=== PATIENT | male | born 1935 | race Hispanic/Latino ===

== ENCOUNTER 2017-06-20 17:27 | Inpatient (IN) | payer MEDICARE, OTHER ==
[2017-06-20 18:28] LABS: Basophils % (Auto) 0.2 % (0.0-1.8); Eosinophils # (Auto) 0.2 K/mm3 (0.0-0.4); Eosinophils % (Auto) 1.7 % (0.0-4.3); Hematocrit 40.6 % (35.5-45.6); Hemoglobin 13.3 gm/dl (11.8-15.2); Lymphocytes # (Auto) 3.1 K/mm3 (1.2-5.4); Lymphocytes % (Auto) 23.4 % (13.4-35.0); Mean Corpuscular HGB Conc 33 % (32-34); Mean Corpuscular Hemoglobin 30 pg (28-32); Mean Corpuscular Volume 92 fl (84-94); Monocytes # (Auto) 1.3 K/mm3 (0.0-0.8); Monocytes % (Auto) 9.6 % (0.0-7.3); Platelet Count 259 K/mm3 (140-440); Red Blood Count 4.41 M/mm3 (3.65-5.03); Red Cell Distribution Width 13.3 % (13.2-15.2)
[2017-06-20 18:34] LABS: BUN/Creatinine Ratio 24; Blood Urea Nitrogen 22 mg/dL (9-20); Calcium 8.7 mg/dL (8.4-10.2); Hemolysis Index 2
--- NOTE | 2017-06-20 20:27 | XRay Report ---
FINAL REPORT EXAM: XR CHEST ROUTINE 2V HISTORY: Shortness of breath TECHNIQUE: Two view chest PA and lateral PRIORS: Comparison is dated October 28, 2009 FINDINGS: Cardiac and mediastinal contours are unremarkable. No focal pulmonary infiltrate is identified. No pleural fluid collection seen. Pulmonary vasculature is unremarkable. Irregular nodular appearing densities overlying the mid to lower thorax bilaterally are unchanged probably reflecting areas of scarring or calcified pleural. Lungs are hyperinflated with flattening of the diaphragm IMPRESSION: Nodular appearing densities unchanged prior exam likely reflecting calcified pleural plaque or areas of scarring. There is some hyperinflation likely reflecting underlying COPD
--- NOTE | 2017-06-20 23:13 | Emergency Department Report ---
ED Shortness of Breath HPI - General Chief Complaint: Dyspnea/Respdistress Stated Complaint: LUNGS Time Seen by Provider: 06/20/17 23:08 Source: patient Mode of arrival: Ambulatory Limitations: No Limitations - History of Present Illness Initial Comments: 81 YO MALE SOB AND COUGHING FOR 3 DAYS SEEN AT THE URGENT CARE AND SENT HER BECAUSE OF LOW SATURATION. 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,ARTHRITIS,HTN,COPD, BACK SURGERY, LEFT LUNG SURGERY, RIGHT ARM SURGERY FOR CANCER, LUNG BIOPSY Complaint: shortness of breath, cough -: Gradual, days(s) (3) Improves With: nothing Worsens With: nothing Known History Of: COPD, diabetes Context: recent URI Associated Symptoms: fever, cough - Related Data Allergies Allergy/AdvReac Type Severity Reaction Status Date / Time No Known Allergies Allergy Unverified 08/11/13 17:06 ED Review of Systems ROS: Stated complaint: LUNGS Other details as noted in HPI Constitutional: chills, fever Eyes: denies: eye pain, eye discharge, vision change ENT: denies: ear pain, throat pain Respiratory: cough. denies: wheezing Cardiovascular: denies: chest pain, palpitations Endocrine: no symptoms reported Gastrointestinal: denies: abdominal pain, nausea, diarrhea Genitourinary: denies: urgency, dysuria Musculoskeletal: arthralgia, myalgia. denies: back pain, joint swelling Skin: denies: rash, lesions Neurological: denies: headache, weakness, paresthesias Psychiatric: denies: anxiety, depression Hematological/Lymphatic: denies: easy bleeding, easy bruising ED Past Medical Hx - Past Medical History Previous Medical History?: Yes Hx Hypertension: Yes Hx Diabetes: Yes Hx of Cancer: Yes (nose, arm) Hx Arthritis: Yes Hx COPD: Yes Additional medical history: Lung problems - Surgical History Past Surgical History?: Yes Additional Surgical History: back surgeyr x 4, Left lung surgery, Right arm surgery for skin cancer, Lung biopsy - Social History Smoking Status: Former Smoker Substance Use Type: Prescribed ED Physical Exam - General Limitations: No Limitations General appearance: alert - Head Head exam: Present: atraumatic, normocephalic - Eye Eye exam: Present: normal appearance, EOMI - ENT ENT exam: Present: mucous membranes moist - Neck Neck exam: Present: normal inspection, full ROM - Respiratory Respiratory exam: Present: respiratory distress, rales (LEFT LUNG), decreased breath sounds (LEFT LUNG) - Cardiovascular Cardiovascular Exam: Present: regular rate, normal rhythm - GI/Abdominal GI/Abdominal exam: Present: soft. Absent: distended, tenderness, guarding, rebound - Rectal Rectal exam: Present: deferred - Extremities Exam Extremities exam: Present: normal inspection, full ROM, normal capillary refill. Absent: pedal edema - Neurological Exam Neurological exam: Present: alert, oriented X3, CN II-XII intact - Psychiatric Psychiatric exam: Present: normal affect, normal mood - Skin Skin exam: Present: warm, dry, intact, normal color. Absent: rash ED Course Vital Signs 06/20/17 06/20/17 06/20/17 17:42 21:25 21:48 Temperature 98 F 97.9 F Pulse Rate 78 83 78 Pulse Rate [ Throughout] Respiratory 18 22 16 Rate Respiratory Rate [ Throughout] Blood Pressure 140/60 149/59 Blood Pressure 128/57 [Right] O2 Sat by Pulse 92 92 94 Oximetry 06/20/17 06/20/17 06/20/17 22:22 22:24 22:26 Temperature Pulse Rate Pulse Rate [ Throughout] Respiratory Rate Respiratory Rate [ Throughout] Blood Pressure 129/58 129/58 129/58 Blood Pressure [Right] O2 Sat by Pulse 92 93 95 Oximetry 06/20/17 06/20/17 06/20/17 22:28 22:30 22:32 Temperature Pulse Rate Pulse Rate [ Throughout] Respiratory Rate Respiratory Rate [ Throughout] Blood Pressure 129/58 129/58 138/61 Blood Pressure [Right] O2 Sat by Pulse 94 93 94 Oximetry 06/20/17 06/20/17 06/20/17 22:34 22:36 22:38 Temperature Pulse Rate Pulse Rate [ Throughout] Respiratory Rate Respiratory Rate [ Throughout] Blood Pressure 138/61 138/61 138/61 Blood Pressure [Right] O2 Sat by Pulse 95 94 93 Oximetry 06/20/17 06/20/17 06/20/17 22:40 22:42 22:44 Temperature Pulse Rate Pulse Rate [ Throughout] Respiratory Rate Respiratory Rate [ Throughout] Blood Pressure 138/61 138/61 138/61 Blood Pressure [Right] O2 Sat by Pulse 94 95 93 Oximetry 06/20/17 06/20/17 06/20/17 22:45 22:46 22:48 Temperature Pulse Rate Pulse Rate [ Throughout] Respiratory Rate Respiratory Rate [ Throughout] Blood Pressure 128/57 128/57 128/57 Blood Pressure [Right] O2 Sat by Pulse 93 94 93 Oximetry 06/20/17 06/20/17 06/20/17 22:50 22:52 22:54 Temperature Pulse Rate Pulse Rate [ Throughout] Respiratory Rate Respiratory Rate [ Throughout] Blood Pressure 128/57 128/57 128/57 Blood Pressure [Right] O2 Sat by Pulse 93 93 94 Oximetry 06/20/17 06/20/17 06/20/17 22:56 22:58 23:00 Temperature Pulse Rate Pulse Rate [ Throughout] Respiratory Rate Respiratory Rate [ Throughout] Blood Pressure 128/57 128/57 128/57 Blood Pressure [Right] O2 Sat by Pulse 95 94 94 Oximetry 06/20/17 06/20/17 06/20/17 23:01 23:02 23:04 Temperature Pulse Rate Pulse Rate [ Throughout] Respiratory Rate Respiratory Rate [ Throughout] Blood Pressure 134/58 134/58 134/58 Blood Pressure [Right] O2 Sat by Pulse 95 95 95 Oximetry 06/20/17 06/20/17 06/20/17 23:06 23:08 23:10 Temperature Pulse Rate Pulse Rate [ Throughout] Respiratory Rate Respiratory Rate [ Throughout] Blood Pressure 134/58 134/58 134/58 Blood Pressure [Right] O2 Sat by Pulse 95 95 95 Oximetry 06/20/17 06/20/17 06/20/17 23:12 23:14 23:16 Temperature Pulse Rate Pulse Rate [ Throughout] Respiratory Rate Respiratory Rate [ Throughout] Blood Pressure 134/58 134/58 134/58 Blood Pressure [Right] O2 Sat by Pulse 94 94 94 Oximetry 06/20/17 06/20/17 06/20/17 23:18 23:20 23:22 Temperature Pulse Rate Pulse Rate [ Throughout] Respiratory Rate Respiratory Rate [ Throughout] Blood Pressure 134/58 134/58 134/58 Blood Pressure [Right] O2 Sat by Pulse 94 95 97 Oximetry 06/20/17 06/20/17 06/20/17 23:24 23:25 23:26 Temperature Pulse Rate Pulse Rate [ Throughout] Respiratory 17 Rate Respiratory Rate [ Throughout] Blood Pressure 134/58 134/58 Blood Pressure [Right] O2 Sat by Pulse 96 96 95 Oximetry 06/20/17 06/20/17 06/20/17 23:28 23:30 23:32 Temperature Pulse Rate Pulse Rate [ Throughout] Respiratory Rate Respiratory Rate [ Throughout] Blood Pressure 134/58 134/58 136/61 Blood Pressure [Right] O2 Sat by Pulse 95 97 94 Oximetry 06/20/17 06/20/17 06/20/17 23:34 23:36 23:38 Temperature Pulse Rate Pulse Rate [ Throughout] Respiratory Rate Respiratory Rate [ Throughout] Blood Pressure 136/61 136/61 136/61 Blood Pressure [Right] O2 Sat by Pulse 96 94 92 Oximetry 06/20/17 06/20/17 06/20/17 23:40 23:42 23:44 Temperature Pulse Rate Pulse Rate [ Throughout] Respiratory Rate Respiratory Rate [ Throughout] Blood Pressure 136/61 136/61 136/61 Blood Pressure [Right] O2 Sat by Pulse 95 95 95 Oximetry 06/20/17 06/20/17 06/20/17 23:45 23:46 23:48 Temperature Pulse Rate Pulse Rate [ Throughout] Respiratory Rate Respiratory Rate [ Throughout] Blood Pressure 133/59 133/59 133/59 Blood Pressure [Right] O2 Sat by Pulse 96 96 95 Oximetry 06/20/17 06/20/17 06/21/17 23:50 23:52 00:40 Temperature Pulse Rate 79 78 Pulse Rate [ 81 Throughout] Respiratory 22 29 H Rate Respiratory 24 Rate [ Throughout] Blood Pressure 133/59 133/59 Blood Pressure [Right] O2 Sat by Pulse 96 95 Oximetry 06/21/17 00:52 Temperature Pulse Rate 91 H Pulse Rate [ Throughout] Respiratory 28 H Rate Respiratory Rate [ Throughout] Blood Pressure 133/59 Blood Pressure [Right] O2 Sat by Pulse 93 Oximetry - Reevaluation(s) Reevaluation #1: 06/21/17 03:34 PT 'S GLUCOSE WAS 61, HE WAS GIVENAAPPLE JUICE AND NOW A MEAL. STILL WAITING ON CTA OF CHEST REPORT. ED Medical Decision Making - Lab Data Result diagrams: 06/20/17 18:05 06/20/17 18:05 - EKG Data -: EKG Interpreted by Fl EKG shows normal: sinus rhythm, axis, intervals, QRS complexes, ST-T waves - Radiology Data Radiology results: report reviewed (CXR;NODUALR APPEARING DENSITIES UNCHANGED FROM PRIOR EXAM, LIKELY REPRESENTING CALCIFIED PLEURAL PLAQUE OR AREAS OF SCARRING, HYPERINFLATION LIKELY REFLECTING AREAS OF SCARRING) Critical Care Time: Yes Critical care time in (mins) excluding proc time.: 30 Critical care attestation.: If time is entered above; I have spent that time in minutes in the direct care of this critically ill patient, excluding procedure time. COLEMAN Critical Care Time: 30MIN ED Disposition Clinical Impression: COPD exacerbation, Dehydration, Hypoglycemia Disposition: OP ADMIT IP TO THIS HOSP Is pt being admited?: Yes Does the pt Need Aspirin: No Condition: Stable Instructions: Chronic Bronchitis (ED) Referrals: BOBBY BOGGS MD [Primary Care Provider] - 3-5 Days Time of Disposition: 03:28 (DR PIERSON WAS PAGED, CASE REVIEWED AND SHE WILL HAVE THE 7AM INCOMIM DOCTOR ADMIT THIS PT)
[2017-06-20] MEDS ORDERED: ATROVENT IH ONE (23:20)
[2017-06-20] MEDS ORDERED: PROVENTIL IH ONE (23:20)
[2017-06-20] MEDS ORDERED: ZITHROMAX 500 MG in NACL 0.9% 250ML 250 ML IV ONE (23:20)
[2017-06-20] MEDS ORDERED: XYLOCAINE 1% MPF 5 mL INFILTRATI ONE (23:20)
[2017-06-20] MEDS ORDERED: ROCEPHIN 1 GM in NACL 0.9% 20 ML IV ONE (23:30)
[2017-06-20] MEDS ORDERED: ROCEPHIN 1,000 MG in NACL 0.9% 50 ML IV NR (23:45)
[2017-06-21] MEDS ORDERED: NACL ONE (01:24)
[2017-06-21] MEDS ORDERED: TORADOL ONE (01:38)
[2017-06-21] MEDS ORDERED: PROVENTIL IH ONE (03:14)
[2017-06-21] MEDS: ATROVENT IH ONE (03:30)
--- NOTE | 2017-06-21 03:52 | Cat Scan Report ---
FINAL REPORT PROCEDURE: CT ANGIO CHEST TECHNIQUE: Computerized tomographic angiography of the chest was performed after the IV injection of iodinated nonionic contrast including image processing. The image data was postprocessed using 2-dimensional multiplanar reformatted (MPR) and 3-dimensional (MIP and/or volume rendered) techniques. HISTORY: SOB COMPARISON: No prior studies are available for comparison. FINDINGS: Heart and pericardium: Normal. Thoracic aorta: There is calcified plaque in the thoracic aorta. There is no aneurysm or dissection.. Pulmonary vasculature: There are no pulmonary emboli.. Lymph nodes: No enlarged thoracic lymph nodes. Lungs: There is moderate COPD and centrilobular emphysema. There are fibrotic changes at the lung bases. There are probable interstitial infiltrates at the right lung base.. Pleural space: There are calcified pleural plaque bilaterally. There are no pleural effusions or pneumothoraces. Musculoskeletal structures: No significant abnormality. Upper abdominal structures: No significant abnormality. IMPRESSION: There is no pulmonary embolism. There is calcified plaque in the thoracic aorta. There is no aneurysm or dissection.. There is moderate COPD and centrilobular emphysema. There are fibrotic changes at the lung bases. There are probable interstitial infiltrates at the right lung base.. There are calcified pleural plaque bilaterally. There are no pleural effusions or pneumothoraces.
--- NOTE | 2017-06-21 05:20 | History and Physical Report ---
History of Present Illness Date of examination: 06/21/17 Chief complaint: SOB / Respiratory distress / Low O2 sat History of present illness: 81 YO MALE SOB AND COUGHING FOR 3 DAYS SEEN AT THE URGENT CARE AND SENT HER BECAUSE OF LOW SATURATION. 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 denies: alcohol abuse Family history: no significant family history Medications and Allergies Allergies Allergy/AdvReac Type Severity Reaction Status Date / Time No Known Allergies Allergy Unverified 08/11/13 17:06 Review of Systems All systems: negative Exam - Physical Exam Narrative exam: General: the patient is awake alert oriented to time place and person. no evidence of acute distress HEENT: Head is atraumatic normocephalic,. Pupils equal round reactive to light and accommodation, extraocular movements intact. Oral mucosa moist. Oropharynx clear. No pharyngeal erythema or tonsillar exudate. Neck: Supple no JVD no thyromegaly or lymphadenopathy. Heart: Regular rate and rhythm no murmurs or gallops. S1 and S2 normal. PMI not displaced. Lungs: respiratory distress, no accessory Respiratory muscle use, rales (LEFT LUNG), decreased breath sounds (LEFT LUNG), diminished chest wall expansion Abdomen: Soft, nondistended, and nontender. Normoactive bowel sounds. No hepatosplenomegaly. No abdominal masses or bruit appreciated. Extremities: No cyanosis/clubbing/ edema. Musculoskeletal: Normal range of movement all joints. No obvious deformity or tenderness to palpation. Normal muscle tone. Back: Normal alignment. No step-off. No midline or paraspinal tenderness. No CVA tenderness. Neurological: Grossly intact and nonfocal. Skin: Warm and dry no rashes or bruises. Psychiatric: Normal mood. Appropriate affect and good insight and judgment. Vascular system: No lymphadenopathy. Distal pulses 2+ bilaterally. - Constitutional Vitals: Temp Pulse Resp BP Pulse Ox 97.9 F 91 H 28 H 133/59 93 06/20/17 21:25 06/21/17 00:52 06/21/17 00:52 06/21/17 00:52 06/21/17 00:52 Results - Labs CBC & Chem 7: 06/20/17 18:05 06/20/17 18:05 Labs: Laboratory Last Values WBC 13.1 K/mm3 (4.5-11.0) H 06/20/17 18:05 RBC 4.41 M/mm3 (3.65-5.03) 06/20/17 18:05 Hgb 13.3 gm/dl (11.8-15.2) 06/20/17 18:05 Hct 40.6 % (35.5-45.6) 06/20/17 18:05 MCV 92 fl (84-94) 06/20/17 18:05 MCH 30 pg (28-32) 06/20/17 18:05 MCHC 33 % (32-34) 06/20/17 18:05 RDW 13.3 % (13.2-15.2) 06/20/17 18:05 Plt Count 259 K/mm3 (140-440) 06/20/17 18:05 Lymph % (Auto) 23.4 % (13.4-35.0) 06/20/17 18:05 [place] % (Auto) 9.6 % (0.0-7.3) H 06/20/17 18:05 Eos % (Auto) 1.7 % (0.0-4.3) 06/20/17 18:05 Baso % (Auto) 0.2 % (0.0-1.8) 06/20/17 18:05 Lymph # 3.1 K/mm3 (1.2-5.4) 06/20/17 18:05 [place] # 1.3 K/mm3 (0.0-0.8) H 06/20/17 18:05 Eos # 0.2 K/mm3 (0.0-0.4) 06/20/17 18:05 Baso # 0.0 K/mm3 (0.0-0.1) 06/20/17 18:05 Seg Neutrophils % 65.1 % (40.0-70.0) 06/20/17 18:05 Seg Neutrophils # 8.6 K/mm3 (1.8-7.7) H 06/20/17 18:05 Sodium 139 mmol/L (137-145) 06/20/17 18:05 Potassium 4.1 mmol/L (3.6-5.0) 06/20/17 18:05 Chloride 98.6 mmol/L (98-107) 06/20/17 18:05 Carbon Dioxide 24 mmol/L (22-30) 06/20/17 18:05 Anion Gap 21 mmol/L 06/20/17 18:05 BUN 22 mg/dL (9-20) H 06/20/17 18:05 Creatinine 0.9 mg/dL (0.8-1.5) 06/20/17 18:05 Estimated GFR > 60 ml/min 06/20/17 18:05 BUN/Creatinine Ratio 24 % 06/20/17 18:05 Glucose 61 mg/dL (75-100) L 06/20/17 18:05 Calcium 8.7 mg/dL (8.4-10.2) 06/20/17 18:05 Total Creatine Kinase 73 units/L (55-170) 06/20/17 23:38 CK-MB (CK-2) 3.0 ng/mL (0.0-4.0) 06/20/17 23:38 CK-MB (CK-2) Rel Index 4.1 (0-4) H 06/20/17 23:38 Troponin T < 0.010 ng/mL (0.00-0.029) 06/20/17 23:38 NT-Pro-B Natriuret Pep 465.7 pg/mL (0-900) 06/20/17 23:38 - Imaging and Cardiology Imaging and Cardiology: EKG shows normal: sinus rhythm, axis, intervals, QRS complexes, ST-T waves CXR;NODUALR APPEARING DENSITIES UNCHANGED FROM PRIOR EXAM, LIKELY REPRESENTING CALCIFIED PLEURAL PLAQUE OR AREAS OF SCARRING, HYPERINFLATION LIKELY REFLECTING AREAS OF SCARRING CTA chest showing moderate COPD and sensory emphysema. There are fibrotic changes at the lung bases. Probable interstitial infiltrates of the right lung base. No PE Assessment and Plan Assessment and plan: Assessment and plan - * Shortness of breath with hypoxia * COPD exacerbation * Interstitial pneumonia * Leukocytosis * History of lung cancer * HTN * DM-II Plan - Admitted to medical telemetry Empiric antibiotics of azithromycin and Rocephin COPD exacerbation - IV steroids (IV Solu-Medrol) when necessary and scheduled bronchodilators aggressively, inhaled steroids Pulmonology consult in a.m. for further evaluation and management recommendations Continue home medications Check hemoglobin A1c Monitor blood sugars with Accu-Cheks every before meals daily at bedtime and cover with sliding scale insulin Monitor CBC and electrolytes Replace electrolytes when necessary as per protocol DVT GI prophylaxis as ordered Monitor and follow the patient closely VTE prophylaxis?: Chemical, Mechanical Plan of care discussed with patient/family: Yes
[2017-06-21] MEDS ORDERED: AMBIEN PO PRN (05:30)
[2017-06-21] MEDS ORDERED: ZOFRAN IV PRN (05:30)
[2017-06-21] MEDS ORDERED: PROVENTIL IH PRN (05:30)
[2017-06-21] MEDS ORDERED: PERCOCET 5/325 PO PRN (05:30)
[2017-06-21] MEDS ORDERED: TYLENOL PO PRN (05:30)
[2017-06-21] MEDS ORDERED: MILK OF MAGNESIA PO PRN (05:30)
[2017-06-21] MEDS ORDERED: DULCOLAX PR PRN (05:30)
[2017-06-21] MEDS ORDERED: D50W (25GM) Syringe IV PRN (05:38)
[2017-06-21 07:51] LABS: Alanine Aminotransferase 24 units/L (7-56); Albumin 3.4 g/dL (3.9-5); BUN/Creatinine Ratio 26; Blood Urea Nitrogen 23 mg/dL (9-20); Calcium 8.3 mg/dL (8.4-10.2); Chol/HDL Ratio 2.82 %; HDL Cholesterol 51 mg/dL (40-59); Hemolysis Index 2; LDL Cholesterol,Direct 82 mg/dL (50-130)
[2017-06-21] MEDS: NOVOLOG SUB-Q SCH ×4 (08:00→22:38)
[2017-06-21] MEDS: DUONEB *Not for PRN Use IH SCH ×3 (08:44→20:04)
[2017-06-21 08:50] LABS: Hematocrit 37.3 % (35.5-45.6); Hemoglobin 12.4 gm/dl (11.8-15.2); Mean Corpuscular HGB Conc 33 % (32-34); Mean Corpuscular Hemoglobin 30 pg (28-32); Mean Corpuscular Volume 90 fl (84-94); Platelet Count 225 K/mm3 (140-440); Red Blood Count 4.13 M/mm3 (3.65-5.03); Red Cell Distribution Width 12.9 % (13.2-15.2)
[2017-06-21] MEDS: PULMICORT IH SCH ×2 (08:54→20:04)
[2017-06-21 09:52] LABS: Band Neutrophils # (Manual) 0.1 K/mm3; Basophils % (Manual) 0 % (0.0-1.8); Eosinophils % (Manual) 0 % (0.0-4.3); Monocytes % (Manual) 0 % (0.0-7.3); Total Cells Counted 100
[2017-06-21 09:54] LABS: RBC Morphology Normal
[2017-06-21] MEDS: SENOKOT PO SCH ×2 (10:50→21:42)
[2017-06-21] MEDS: LOVENOX SUB-Q SCH (10:50)
[2017-06-21] MEDS: COLACE PO SCH ×2 (10:51→21:42)
[2017-06-21] MEDS: PROTONIX PO SCH (10:51)
[2017-06-21] MEDS: LEVAQUIN 750MG/150ML 750 MG/150 ML BAG IV SCH (10:52)
[2017-06-21] MEDS: NACL 0.9% 1000 ML 1,000 ML IV SCH (10:52)
--- NOTE | 2017-06-21 11:50 | Progress Note ---
Assessment and Plan Assessment and plan: Acute hypoxic respiratory failure. Continue supplemental oxygen and BiPAP as clinically indicated. Etiology secondary to COPD and pneumonia. Community-acquired pneumonia. Continue IV antibiotics. Follow-up serial Chest x-ray. Acute COPD exacerbation. Continue systemic steroids with IV Solu-Medrol and bronchodilators. Pulmonary consultation pending. Leukocytosis. Etiology secondary to above. Hypertension. Continue antihypertensive medications. Diabetes mellitus type 2. Continue Accu-Cheks and sliding scale insulin. History of lung cancer. History Interval history: No new issues overnight. Hospitalist Physical - Constitutional Vitals: Temp Pulse Resp BP Pulse Ox 97.9 F 70 21 116/51 95 06/20/17 21:25 06/21/17 08:47 06/21/17 05:52 06/21/17 06:24 06/21/17 07:30 General appearance: Present: no acute distress, well-nourished - EENT Eyes: Present: PERRL, EOM intact ENT: hearing intact, clear oral mucosa, dentition normal - Neck Neck: Present: supple, normal ROM - Respiratory Respiratory effort: normal Respiratory: bilateral: CTA - Cardiovascular Rhythm: regular Heart Sounds: Present: S1 & S2. Absent: gallop, rub - Extremities Extremities: no ischemia, No edema, Full ROM - Abdominal General gastrointestinal: soft, non-tender, non-distended, normal bowel sounds - Integumentary Integumentary: Present: clear, warm, dry - Neurologic Neurologic: CNII-XII intact, moves all extremities Results - Labs CBC & Chem 7: 06/21/17 08:21 06/21/17 06:59 Labs: Laboratory Last Values WBC 9.6 K/mm3 (4.5-11.0) 06/21/17 08:21 RBC 4.13 M/mm3 (3.65-5.03) 06/21/17 08:21 Hgb 12.4 gm/dl (11.8-15.2) 06/21/17 08:21 Hct 37.3 % (35.5-45.6) 06/21/17 08:21 MCV 90 fl (84-94) 06/21/17 08:21 MCH 30 pg (28-32) 06/21/17 08:21 MCHC 33 % (32-34) 06/21/17 08:21 RDW 12.9 % (13.2-15.2) L 06/21/17 08:21 Plt Count 225 K/mm3 (140-440) 06/21/17 08:21 Lymph % (Auto) 23.4 % (13.4-35.0) 06/20/17 18:05 [place] % (Auto) 9.6 % (0.0-7.3) H 06/20/17 18:05 Eos % (Auto) 1.7 % (0.0-4.3) 06/20/17 18:05 Baso % (Auto) 0.2 % (0.0-1.8) 06/20/17 18:05 Lymph # 3.1 K/mm3 (1.2-5.4) 06/20/17 18:05 [place] # 1.3 K/mm3 (0.0-0.8) H 06/20/17 18:05 Eos # 0.2 K/mm3 (0.0-0.4) 06/20/17 18:05 Baso # 0.0 K/mm3 (0.0-0.1) 06/20/17 18:05 Add Manual Diff Complete 06/21/17 08:21 Total Counted 100 06/21/17 08:21 Seg Neutrophils % Curb And Gutter Laborer 06/21/17 08:21 Seg Neuts % (Manual) 95.0 % (40.0-70.0) H 06/21/17 08:21 Band Neutrophils % 1.0 % 06/21/17 08:21 Lymphocytes % (Manual) 4.0 % (13.4-35.0) L 06/21/17 08:21 Reactive Lymphs % (Man) 0 % 06/21/17 08:21 Monocytes % (Manual) 0 % (0.0-7.3) 06/21/17 08:21 Eosinophils % (Manual) 0 % (0.0-4.3) 06/21/17 08:21 Basophils % (Manual) 0 % (0.0-1.8) 06/21/17 08:21 Metamyelocytes % 0 % 06/21/17 08:21 Myelocytes % 0 % 06/21/17 08:21 Promyelocytes % 0 % 06/21/17 08:21 Blast Cells % 0 % 06/21/17 08:21 Nucleated RBC % Not Reportable 06/21/17 08:21 Seg Neutrophils # 8.6 K/mm3 (1.8-7.7) H 06/20/17 18:05 Seg Neutrophils # Man 9.1 K/mm3 (1.8-7.7) H 06/21/17 08:21 Band Neutrophils # 0.1 K/mm3 06/21/17 08:21 Lymphocytes # (Manual) 0.4 K/mm3 (1.2-5.4) L 06/21/17 08:21 Abs React Lymphs (Man) 0.0 K/mm3 06/21/17 08:21 Monocytes # (Manual) 0.0 K/mm3 (0.0-0.8) 06/21/17 08:21 Eosinophils # (Manual) 0.0 K/mm3 (0.0-0.4) 06/21/17 08:21 Basophils # (Manual) 0.0 K/mm3 (0.0-0.1) 06/21/17 08:21 Metamyelocytes # 0.0 K/mm3 06/21/17 08:21 Myelocytes # 0.0 K/mm3 06/21/17 08:21 Promyelocytes # 0.0 K/mm3 06/21/17 08:21 Blast Cells # 0.0 K/mm3 06/21/17 08:21 WBC Morphology Not Reportable 06/21/17 08:21 Hypersegmented Neuts Not Reportable 06/21/17 08:21 Hyposegmented Neuts Not Reportable 06/21/17 08:21 Hypogranular Neuts Not Reportable 06/21/17 08:21 Smudge Cells Not Reportable 06/21/17 08:21 Toxic Granulation Not Reportable 06/21/17 08:21 Toxic Vacuolation Not Reportable 06/21/17 08:21 Dohle Bodies Not Reportable 06/21/17 08:21 Pelger-Huet Anomaly Not Reportable 06/21/17 08:21 Evens Rods Not Reportable 06/21/17 08:21 Platelet Estimate Appears normal 06/21/17 08:21 Clumped Platelets Not Reportable 06/21/17 08:21 Plt Clumps, EDTA Not Reportable 06/21/17 08:21 Large Platelets Not Reportable 06/21/17 08:21 Giant Platelets Not Reportable 06/21/17 08:21 Platelet Satelliting Not Reportable 06/21/17 08:21 Plt Morphology Comment Not Reportable 06/21/17 08:21 RBC Morphology Normal 06/21/17 08:21 Dimorphic RBCs Not Reportable 06/21/17 08:21 Polychromasia Not Reportable 06/21/17 08:21 Hypochromasia Not Reportable 06/21/17 08:21 Poikilocytosis Not Reportable 06/21/17 08:21 Anisocytosis Not Reportable 06/21/17 08:21 Microcytosis Not Reportable 06/21/17 08:21 Macrocytosis Not Reportable 06/21/17 08:21 Spherocytes Not Reportable 06/21/17 08:21 Pappenheimer Bodies Not Reportable 06/21/17 08:21 Sickle Cells Not Reportable 06/21/17 08:21 Target Cells Not Reportable 06/21/17 08:21 Tear Drop Cells Not Reportable 06/21/17 08:21 Ovalocytes Not Reportable 06/21/17 08:21 Helmet Cells Not Reportable 06/21/17 08:21 [place] Bodies Not Reportable 06/21/17 08:21 [place] Rings Not Reportable 06/21/17 08:21 S[place] Cells Not Reportable 06/21/17 08:21 Bite Cells Not Reportable 06/21/17 08:21 Crenated Cell Not Reportable 06/21/17 08:21 Elliptocytes Not Reportable 06/21/17 08:21 Acanthocytes (Spur) Not Reportable 06/21/17 08:21 Rouleaux Not Reportable 06/21/17 08:21 Hemoglobin C Crystals Not Reportable 06/21/17 08:21 Schistocytes Not Reportable 06/21/17 08:21 Malaria parasites Not Reportable 06/21/17 08:21 [place] Bodies Not Reportable 06/21/17 08:21 Hem Pathologist Commnt No 06/21/17 08:21 Sodium 138 mmol/L (137-145) 06/21/17 06:59 Potassium 4.6 mmol/L (3.6-5.0) 06/21/17 06:59 Chloride 99.4 mmol/L (98-107) 06/21/17 06:59 Carbon Dioxide 20 mmol/L (22-30) L 06/21/17 06:59 Anion Gap 23 mmol/L 06/21/17 06:59 BUN 23 mg/dL (9-20) H 06/21/17 06:59 Creatinine 0.9 mg/dL (0.8-1.5) 06/21/17 06:59 Estimated GFR > 60 ml/min 06/21/17 06:59 BUN/Creatinine Ratio 26 % 06/21/17 06:59 Glucose 282 mg/dL (75-100) H 06/21/17 06:59 Hemoglobin A1c 6.7 % (4-6) H 06/21/17 06:59 Calcium 8.3 mg/dL (8.4-10.2) L 06/21/17 06:59 Total Bilirubin 0.60 mg/dL (0.1-1.2) 06/21/17 06:59 AST 24 units/L (5-40) 06/21/17 06:59 ALT 24 units/L (7-56) 06/21/17 06:59 Alkaline Phosphatase 58 units/L (35-129) 06/21/17 06:59 Total Creatine Kinase 73 units/L (55-170) 06/20/17 23:38 CK-MB (CK-2) 3.0 ng/mL (0.0-4.0) 06/20/17 23:38 CK-MB (CK-2) Rel Index 4.1 (0-4) H 06/20/17 23:38 Troponin T < 0.010 ng/mL (0.00-0.029) 06/20/17 23:38 NT-Pro-B Natriuret Pep 465.7 pg/mL (0-900) 06/20/17 23:38 Total Protein 6.4 g/dL (6.3-8.2) 06/21/17 06:59 Albumin 3.4 g/dL (3.9-5) L 06/21/17 06:59 Albumin/Globulin Ratio 1.1 % 06/21/17 06:59 Triglycerides 58 mg/dL (2-149) 06/21/17 06:59 Cholesterol 144 mg/dL (50-199) 06/21/17 06:59 LDL Cholesterol Direct 82 mg/dL (50-130) 06/21/17 06:59 HDL Cholesterol 51 mg/dL (40-59) 06/21/17 06:59 Cholesterol/HDL Ratio 2.82 % 06/21/17 06:59
--- NOTE | 2017-06-21 14:06 | Consultation ---
History of Present Illness Consult date: 06/21/17 Requesting physician: VALENTIN BARRETO Reason for consult: COPD History of present illness: 81 yo with COPD presents with 5-6 days of increased SOB, wheezing, cough with green/brown sputum, fever to 101. No chest pain, hemoptysis. Not on home O2. Currently on RA. Active Medications Acetaminophen (Tylenol) 650 mg PO Q4H PRN PRN Reason: Pain MILD(1-3)/Fever >100.5/MILES Albuterol (Proventil) 2.5 mg IH Q3HRT PRN PRN Reason: Shortness Of Breath Last Admin: 06/21/17 08:54 Dose: 2.5 mg Albuterol/Ipratropium (Duoneb *Not For Prn Use*) 1 ampul IH Q6HRT [facility] Last Admin: 06/21/17 08:44 Dose: Not Given Bisacodyl (Dulcolax) 10 mg NE QDAY PRN PRN Reason: Constipation unrelieved by MOM Budesonide (Pulmicort) 0.5 mg IH Q12HRT [facility] Last Admin: 06/21/17 08:54 Dose: 0.5 mg Dextrose (D50w (25gm) Syringe) 50 ml IV PRN PRN PRN Reason: Hypoglycemia Docusate Sodium (Colace) 100 mg PO BID [facility] Last Admin: 06/21/17 10:51 Dose: 100 mg Enoxaparin Sodium (Lovenox) 40 mg SUB-Q QDAY [facility] Last Admin: 06/21/17 10:50 Dose: 40 mg Guaifenesin (Mucinex Er) 600 mg PO BID [facility] Levofloxacin/Dextrose (Levaquin 750mg/150ml) 750 mg in 150 mls @ 100 mls/hr IV Q24HR BIJAN PRN Reason: Protocol Last Admin: 06/21/17 10:52 Dose: 100 mls/hr Sodium Chloride (Nacl 0.9% 1000 Ml) 1,000 mls @ 125 mls/hr IV DIRECT [facility] Last Admin: 06/21/17 10:52 Dose: 125 mls/hr Insulin Aspart (Novolog) 0 units SUB-Q ACHS BIJAN PRN Reason: Protocol Magnesium Hydroxide (Milk Of Magnesia) 30 ml PO Q4H PRN PRN Reason: Constipation Methylprednisolone Sodium Succinate (Solu-Medrol) 60 mg IV Q8HR [facility] Ondansetron HCl (Zofran) 4 mg IV Q8H PRN PRN Reason: N/V unrelieved by Seth Oxycodone/Acetaminophen (Percocet 5/325) 1 tab PO Q6H PRN PRN Reason: Pain, Moderate (4-6) Pantoprazole Sodium (Protonix) 40 mg PO QDAY [facility] Last Admin: 06/21/17 10:51 Dose: 40 mg Senna (Senokot) 8.6 mg PO Q12HR [facility] Last Admin: 06/21/17 10:50 Dose: 8.6 mg Zolpidem Tartrate (Ambien) 5 mg PO QHS PRN PRN Reason: Insomnia Past History Past Medical History: other (Hypertension, diabetes mellitus type 2, arthritis, COPD, back surgery and lung surgery and right thumb surgery for cancer, lung biopsy) Social history: smoking, full code. denies: alcohol abuse, prescription drug abuse, IV drug use Family history: no significant family history (no pulm issues reported) Medications and Allergies Allergies Allergy/AdvReac Type Severity Reaction Status Date / Time No Known Allergies Allergy Unverified 08/11/13 17:06 Home Medications Medication Instructions Recorded Confirmed Last Taken Type ALBUTEROL Inhaler [Proair] 2 puff IH QID PRN 06/21/17 06/21/17 1 Day Ago History ~06/20/17 Fluticasone [Flonase] 1 spray NS QDAY 06/21/17 06/21/17 1 Day Ago History ~06/20/17 Glimepiride [Amaryl] 2 mg PO QAM 06/21/17 06/21/17 1 Day Ago History ~06/20/17 Ipratropium/Albuterol Sulfate 1 ampul IH Q6HR 06/21/17 06/21/17 1 Day Ago History [DUONEB *Not for PRN Use*] ~06/20/17 Saxagliptin HCl/Metformin HCl 1 each PO DAILY 06/21/17 06/21/17 1 Day Ago History [Kombiglyze Xr 2.5-1,000 mg Tab] ~06/20/17 Active Meds: Active Medications Acetaminophen (Tylenol) 650 mg PO Q4H PRN PRN Reason: Pain MILD(1-3)/Fever >100.5/MILES Albuterol (Proventil) 2.5 mg IH Q3HRT PRN PRN Reason: Shortness Of Breath Last Admin: 06/21/17 08:54 Dose: 2.5 mg Albuterol/Ipratropium (Duoneb *Not For Prn Use*) 1 ampul IH Q6HRT [facility] Last Admin: 06/21/17 08:44 Dose: Not Given Bisacodyl (Dulcolax) 10 mg NE QDAY PRN PRN Reason: Constipation unrelieved by MOM Budesonide (Pulmicort) 0.5 mg IH Q12HRT [facility] Last Admin: 06/21/17 08:54 Dose: 0.5 mg Dextrose (D50w (25gm) Syringe) 50 ml IV PRN PRN PRN Reason: Hypoglycemia Docusate Sodium (Colace) 100 mg PO BID [facility] Last Admin: 06/21/17 10:51 Dose: 100 mg Enoxaparin Sodium (Lovenox) 40 mg SUB-Q QDAY [facility] Last Admin: 06/21/17 10:50 Dose: 40 mg Levofloxacin/Dextrose (Levaquin 750mg/150ml) 750 mg in 150 mls @ 100 mls/hr IV Q24HR [facility] PRN Reason: Protocol Last Admin: 06/21/17 10:52 Dose: 100 mls/hr Sodium Chloride (Nacl 0.9% 1000 Ml) 1,000 mls @ 125 mls/hr IV DIRECT [facility] Last Admin: 06/21/17 10:52 Dose: 125 mls/hr Insulin Aspart (Novolog) 0 units SUB-Q ACHS [facility] PRN Reason: Protocol Magnesium Hydroxide (Milk Of Magnesia) 30 ml PO Q4H PRN PRN Reason: Constipation Ondansetron HCl (Zofran) 4 mg IV Q8H PRN PRN Reason: N/V unrelieved by Reglan Oxycodone/Acetaminophen (Percocet 5/325) 1 tab PO Q6H PRN PRN Reason: Pain, Moderate (4-6) Pantoprazole Sodium (Protonix) 40 mg PO QDAY [facility] Last Admin: 06/21/17 10:51 Dose: 40 mg Senna (Senokot) 8.6 mg PO Q12HR [facility] Last Admin: 06/21/17 10:50 Dose: 8.6 mg Zolpidem Tartrate (Ambien) 5 mg PO QHS PRN PRN Reason: Insomnia Review of Systems All systems: negative Physical Examination Vital signs: Vital Signs Temp Pulse Resp BP Pulse Ox 98 F 78 18 140/60 92 06/20/17 17:42 06/20/17 17:42 06/20/17 17:42 06/20/17 17:42 06/20/17 17:42 Vital Signs - 24 hr 06/20/17 06/20/17 06/20/17 17:42 21:25 21:48 Temperature 98 F 97.9 F Pulse Rate 78 83 78 Pulse Rate [ Throughout] Respiratory 18 22 16 Rate Respiratory Rate [ Generalized] Respiratory Rate [ Throughout] Blood Pressure 140/60 149/59 Blood Pressure 128/57 [Right] O2 Sat by Pulse 92 92 94 Oximetry 06/20/17 06/20/17 06/20/17 22:22 22:24 22:26 Temperature Pulse Rate Pulse Rate [ Throughout] Respiratory Rate Respiratory Rate [ Generalized] Respiratory Rate [ Throughout] Blood Pressure 129/58 129/58 129/58 Blood Pressure [Right] O2 Sat by Pulse 92 93 95 Oximetry 06/20/17 06/20/17 06/20/17 22:28 22:30 22:32 Temperature Pulse Rate Pulse Rate [ Throughout] Respiratory Rate Respiratory Rate [ Generalized] Respiratory Rate [ Throughout] Blood Pressure 129/58 129/58 138/61 Blood Pressure [Right] O2 Sat by Pulse 94 93 94 Oximetry 06/20/17 06/20/17 06/20/17 22:34 22:36 22:38 Temperature Pulse Rate Pulse Rate [ Throughout] Respiratory Rate Respiratory Rate [ Generalized] Respiratory Rate [ Throughout] Blood Pressure 138/61 138/61 138/61 Blood Pressure [Right] O2 Sat by Pulse 95 94 93 Oximetry 06/20/17 06/20/17 06/20/17 22:40 22:42 22:44 Temperature Pulse Rate Pulse Rate [ Throughout] Respiratory Rate Respiratory Rate [ Generalized] Respiratory Rate [ Throughout] Blood Pressure 138/61 138/61 138/61 Blood Pressure [Right] O2 Sat by Pulse 94 95 93 Oximetry 06/20/17 06/20/17 06/20/17 22:45 22:46 22:48 Temperature Pulse Rate Pulse Rate [ Throughout] Respiratory Rate Respiratory Rate [ Generalized] Respiratory Rate [ Throughout] Blood Pressure 128/57 128/57 128/57 Blood Pressure [Right] O2 Sat by Pulse 93 94 93 Oximetry 06/20/17 06/20/17 06/20/17 22:50 22:52 22:54 Temperature Pulse Rate Pulse Rate [ Throughout] Respiratory Rate Respiratory Rate [ Generalized] Respiratory Rate [ Throughout] Blood Pressure 128/57 128/57 128/57 Blood Pressure [Right] O2 Sat by Pulse 93 93 94 Oximetry 06/20/17 06/20/17 06/20/17 22:56 22:58 23:00 Temperature Pulse Rate Pulse Rate [ Throughout] Respiratory Rate Respiratory Rate [ Generalized] Respiratory Rate [ Throughout] Blood Pressure 128/57 128/57 128/57 Blood Pressure [Right] O2 Sat by Pulse 95 94 94 Oximetry 06/20/17 06/20/17 06/20/17 23:01 23:02 23:04 Temperature Pulse Rate Pulse Rate [ Throughout] Respiratory Rate Respiratory Rate [ Generalized] Respiratory Rate [ Throughout] Blood Pressure 134/58 134/58 134/58 Blood Pressure [Right] O2 Sat by Pulse 95 95 95 Oximetry 06/20/17 06/20/17 06/20/17 23:06 23:08 23:10 Temperature Pulse Rate Pulse Rate [ Throughout] Respiratory Rate Respiratory Rate [ Generalized] Respiratory Rate [ Throughout] Blood Pressure 134/58 134/58 134/58 Blood Pressure [Right] O2 Sat by Pulse 95 95 95 Oximetry 06/20/17 06/20/17 06/20/17 23:12 23:14 23:16 Temperature Pulse Rate Pulse Rate [ Throughout] Respiratory Rate Respiratory Rate [ Generalized] Respiratory Rate [ Throughout] Blood Pressure 134/58 134/58 134/58 Blood Pressure [Right] O2 Sat by Pulse 94 94 94 Oximetry 06/20/17 06/20/17 06/20/17 23:18 23:20 23:22 Temperature Pulse Rate Pulse Rate [ Throughout] Respiratory Rate Respiratory Rate [ Generalized] Respiratory Rate [ Throughout] Blood Pressure 134/58 134/58 134/58 Blood Pressure [Right] O2 Sat by Pulse 94 95 97 Oximetry 06/20/17 06/20/17 06/20/17 23:24 23:25 23:26 Temperature Pulse Rate Pulse Rate [ Throughout] Respiratory 17 Rate Respiratory Rate [ Generalized] Respiratory Rate [ Throughout] Blood Pressure 134/58 134/58 Blood Pressure [Right] O2 Sat by Pulse 96 96 95 Oximetry 06/20/17 06/20/17 06/20/17 23:28 23:30 23:32 Temperature Pulse Rate Pulse Rate [ Throughout] Respiratory Rate Respiratory Rate [ Generalized] Respiratory Rate [ Throughout] Blood Pressure 134/58 134/58 136/61 Blood Pressure [Right] O2 Sat by Pulse 95 97 94 Oximetry 06/20/17 06/20/17 06/20/17 23:34 23:36 23:38 Temperature Pulse Rate Pulse Rate [ Throughout] Respiratory Rate Respiratory Rate [ Generalized] Respiratory Rate [ Throughout] Blood Pressure 136/61 136/61 136/61 Blood Pressure [Right] O2 Sat by Pulse 96 94 92 Oximetry 06/20/17 06/20/17 06/20/17 23:40 23:42 23:44 Temperature Pulse Rate Pulse Rate [ Throughout] Respiratory Rate Respiratory Rate [ Generalized] Respiratory Rate [ Throughout] Blood Pressure 136/61 136/61 136/61 Blood Pressure [Right] O2 Sat by Pulse 95 95 95 Oximetry 06/20/17 06/20/17 06/20/17 23:45 23:46 23:48 Temperature Pulse Rate Pulse Rate [ Throughout] Respiratory Rate Respiratory Rate [ Generalized] Respiratory Rate [ Throughout] Blood Pressure 133/59 133/59 133/59 Blood Pressure [Right] O2 Sat by Pulse 96 96 95 Oximetry 06/20/17 06/20/17 06/21/17 23:50 23:52 00:40 Temperature Pulse Rate 79 78 Pulse Rate [ 81 Throughout] Respiratory 22 29 H Rate Respiratory Rate [ Generalized] Respiratory 24 Rate [ Throughout] Blood Pressure 133/59 133/59 Blood Pressure [Right] O2 Sat by Pulse 96 95 Oximetry 06/21/17 06/21/17 06/21/17 00:52 04:35 04:50 Temperature Pulse Rate 91 H 75 Pulse Rate [ 78 Throughout] Respiratory 28 H 20 Rate Respiratory Rate [ Generalized] Respiratory 20 Rate [ Throughout] Blood Pressure 133/59 Blood Pressure [Right] O2 Sat by Pulse 93 96 Oximetry 06/21/17 06/21/17 06/21/17 04:52 04:54 04:56 Temperature Pulse Rate 78 75 74 Pulse Rate [ Throughout] Respiratory 20 19 19 Rate Respiratory Rate [ Generalized] Respiratory Rate [ Throughout] Blood Pressure Blood Pressure [Right] O2 Sat by Pulse 95 95 96 Oximetry 06/21/17 06/21/17 06/21/17 04:58 05:00 05:02 Temperature Pulse Rate 75 74 72 Pulse Rate [ Throughout] Respiratory 20 17 21 Rate Respiratory Rate [ Generalized] Respiratory Rate [ Throughout] Blood Pressure 126/56 130/53 130/53 Blood Pressure [Right] O2 Sat by Pulse 95 94 95 Oximetry 06/21/17 06/21/17 06/21/17 05:04 05:06 05:08 Temperature Pulse Rate 74 76 75 Pulse Rate [ Throughout] Respiratory 20 14 15 Rate Respiratory Rate [ Generalized] Respiratory Rate [ Throughout] Blood Pressure 130/53 130/53 130/53 Blood Pressure [Right] O2 Sat by Pulse 96 95 96 Oximetry 06/21/17 06/21/17 06/21/17 05:10 05:12 05:14 Temperature Pulse Rate 74 78 78 Pulse Rate [ Throughout] Respiratory 20 14 14 Rate Respiratory Rate [ Generalized] Respiratory Rate [ Throughout] Blood Pressure 130/53 130/53 130/53 Blood Pressure [Right] O2 Sat by Pulse 96 96 95 Oximetry 06/21/17 06/21/17 06/21/17 05:15 05:16 05:18 Temperature Pulse Rate 81 82 Pulse Rate [ Throughout] Respiratory 17 18 Rate Respiratory Rate [ Generalized] Respiratory Rate [ Throughout] Blood Pressure 126/48 126/48 126/48 Blood Pressure [Right] O2 Sat by Pulse 94 95 96 Oximetry 06/21/17 06/21/17 06/21/17 05:20 05:22 05:24 Temperature Pulse Rate Pulse Rate [ Throughout] Respiratory Rate Respiratory Rate [ Generalized] Respiratory Rate [ Throughout] Blood Pressure 126/48 126/48 126/48 Blood Pressure [Right] O2 Sat by Pulse 96 95 96 Oximetry 06/21/17 06/21/17 06/21/17 05:26 05:28 05:30 Temperature Pulse Rate Pulse Rate [ Throughout] Respiratory Rate Respiratory Rate [ Generalized] Respiratory Rate [ Throughout] Blood Pressure 126/48 126/48 113/57 Blood Pressure [Right] O2 Sat by Pulse 96 96 94 Oximetry 06/21/17 06/21/17 06/21/17 05:32 05:34 05:36 Temperature Pulse Rate 76 73 71 Pulse Rate [ Throughout] Respiratory 21 19 19 Rate Respiratory Rate [ Generalized] Respiratory Rate [ Throughout] Blood Pressure 113/57 113/57 113/57 Blood Pressure [Right] O2 Sat by Pulse 97 96 97 Oximetry 06/21/17 06/21/17 06/21/17 05:38 05:40 05:42 Temperature Pulse Rate 72 72 71 Pulse Rate [ Throughout] Respiratory 20 20 20 Rate Respiratory Rate [ Generalized] Respiratory Rate [ Throughout] Blood Pressure 113/57 113/57 113/57 Blood Pressure [Right] O2 Sat by Pulse 97 97 97 Oximetry 06/21/17 06/21/17 06/21/17 05:44 05:46 05:48 Temperature Pulse Rate 71 74 74 Pulse Rate [ Throughout] Respiratory 19 17 20 Rate Respiratory Rate [ Generalized] Respiratory Rate [ Throughout] Blood Pressure 113/57 113/57 113/57 Blood Pressure [Right] O2 Sat by Pulse 97 96 97 Oximetry 06/21/17 06/21/17 06/21/17 05:50 05:52 05:54 Temperature Pulse Rate 72 72 73 Pulse Rate [ Throughout] Respiratory 19 21 Rate Respiratory Rate [ Generalized] Respiratory Rate [ Throughout] Blood Pressure 113/57 116/51 116/51 Blood Pressure [Right] O2 Sat by Pulse 97 97 98 Oximetry 06/21/17 06/21/17 06/21/17 05:56 05:57 05:58 Temperature Pulse Rate 70 80 70 Pulse Rate [ Throughout] Respiratory Rate Respiratory Rate [ Generalized] Respiratory Rate [ Throughout] Blood Pressure 116/51 116/51 116/51 Blood Pressure [Right] O2 Sat by Pulse 97 97 96 Oximetry 06/21/17 06/21/17 06/21/17 06:00 06:02 06:04 Temperature Pulse Rate 75 73 69 Pulse Rate [ Throughout] Respiratory Rate Respiratory Rate [ Generalized] Respiratory Rate [ Throughout] Blood Pressure 116/51 125/51 125/51 Blood Pressure [Right] O2 Sat by Pulse 95 97 95 Oximetry 06/21/17 06/21/17 06/21/17 06:06 06:08 06:10 Temperature Pulse Rate 62 62 70 Pulse Rate [ Throughout] Respiratory Rate Respiratory Rate [ Generalized] Respiratory Rate [ Throughout] Blood Pressure 125/51 125/51 116/51 Blood Pressure [Right] O2 Sat by Pulse 96 97 97 Oximetry 06/21/17 06/21/17 06/21/17 06:12 06:14 06:16 Temperature Pulse Rate 77 70 71 Pulse Rate [ Throughout] Respiratory Rate Respiratory Rate [ Generalized] Respiratory Rate [ Throughout] Blood Pressure 116/51 116/51 116/51 Blood Pressure [Right] O2 Sat by Pulse 97 96 96 Oximetry 06/21/17 06/21/17 06/21/17 06:18 06:20 06:22 Temperature Pulse Rate 69 75 71 Pulse Rate [ Throughout] Respiratory Rate Respiratory Rate [ Generalized] Respiratory Rate [ Throughout] Blood Pressure 116/51 116/51 116/51 Blood Pressure [Right] O2 Sat by Pulse 96 95 95 Oximetry 06/21/17 06/21/17 06/21/17 06:24 07:30 08:47 Temperature Pulse Rate 67 70 Pulse Rate [ Throughout] Respiratory Rate Respiratory Rate [ Generalized] Respiratory Rate [ Throughout] Blood Pressure 116/51 Blood Pressure [Right] O2 Sat by Pulse 96 95 Oximetry 06/21/17 06/21/17 10:00 12:56 Temperature Pulse Rate Pulse Rate [ Throughout] Respiratory 20 Rate Respiratory 20 Rate [ Generalized] Respiratory Rate [ Throughout] Blood Pressure Blood Pressure [Right] O2 Sat by Pulse 96 Oximetry General appearance: no acute distress, alert Eyes: non-icteric ENT: oropharynx moist Neck: supple Effort: normal Ascultation: Bilateral: wheezes, rhonchi Cardiovascular: regular rate and rhythm (no mrg) Gastrointestinal: normoactive bowel sounds, soft, non-tender, non-distended Integumentary: normal Extremities: no cyanosis, no edema, pink and warm Musculoskeletal: no deformities normal mental status, non-focal exam, pupils equal and round, CN II-XII normal mood appropriate, affect normal Results - Laboratory Findings CBC and BMP: 06/21/17 08:21 06/21/17 06:59 Abnormal lab findings: Abnormal Labs 06/20/17 06/20/17 06/20/17 18:05 18:05 23:38 WBC 13.1 H RDW [place] % (Auto) 9.6 H [place] # 1.3 H Seg Neuts % (Manual) Lymphocytes % (Manual) Seg Neutrophils # 8.6 H Seg Neutrophils # Man Lymphocytes # (Manual) Carbon Dioxide BUN 22 H Glucose 61 L POC Glucose Hemoglobin A1c Calcium CK-MB (CK-2) Rel Index 4.1 H Albumin 06/21/17 06/21/17 06/21/17 06:59 06:59 08:21 WBC RDW 12.9 L [place] % (Auto) [place] # Seg Neuts % (Manual) 95.0 H Lymphocytes % (Manual) 4.0 L Seg Neutrophils # Seg Neutrophils # Man 9.1 H Lymphocytes # (Manual) 0.4 L Carbon Dioxide 20 L BUN 23 H Glucose 282 H POC Glucose Hemoglobin A1c 6.7 H Calcium 8.3 L CK-MB (CK-2) Rel Index Albumin 3.4 L 06/21/17 13:02 WBC RDW [place] % (Auto) [place] # Seg Neuts % (Manual) Lymphocytes % (Manual) Seg Neutrophils # Seg Neutrophils # Man Lymphocytes # (Manual) Carbon Dioxide BUN Glucose POC Glucose 296 H Hemoglobin A1c Calcium CK-MB (CK-2) Rel Index Albumin - Diagnostic Findings Chest x-ray: report reviewed, image reviewed CT scan - chest: report reviewed, image reviewed Assessment and Plan Imp: 1. RLL CAP (ground glass densities not present on prior CTA chest) 2. 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 Cont. Levaquin, Bronchodilators 2. Add Mucinex and Solumedrol 3. Monitor for clinical and radiographic improvement Plan of care reviewed with patient/daughter, they understand/agree Thanks kindly for the consult. Will follow w/ you.
[2017-06-21] MEDS: MUCINEX ER PO SCH (21:42)
[2017-06-21] MEDS ORDERED: TORADOL IV ONE (21:49)
[2017-06-22] MEDS: NACL 0.9% 1000 ML 1,000 ML IV SCH ×2 (01:30→10:24)
[2017-06-22] MEDS: DUONEB *Not for PRN Use IH SCH ×4 (01:40→19:43)
[2017-06-22 05:19] LABS: Hematocrit 33.7 % (35.5-45.6); Hemoglobin 11.5 gm/dl (11.8-15.2); Mean Corpuscular HGB Conc 34 % (32-34); Mean Corpuscular Hemoglobin 31 pg (28-32); Mean Corpuscular Volume 91 fl (84-94); Platelet Count 197 K/mm3 (140-440); Red Blood Count 3.72 M/mm3 (3.65-5.03); Red Cell Distribution Width 13.1 % (13.2-15.2)
[2017-06-22 05:58] LABS: Alanine Aminotransferase 20 units/L (7-56); BUN/Creatinine Ratio 29; Blood Urea Nitrogen 23 mg/dL (9-20); Calcium 8.2 mg/dL (8.4-10.2); Hemolysis Index 29
[2017-06-22 06:22] LABS: Band Neutrophils # (Manual) 0.2 K/mm3; Basophils % (Manual) 0 % (0.0-1.8); Eosinophils % (Manual) 0 % (0.0-4.3); Platelet Estimate Consistent w Auto; RBC Morphology Normal; Total Cells Counted 100
[2017-06-22] MEDS: PULMICORT IH SCH ×2 (07:34→19:44)
[2017-06-22] MEDS: NOVOLOG SUB-Q SCH ×4 (08:00→21:44)
[2017-06-22] MEDS: LEVAQUIN 750MG/150ML 750 MG/150 ML BAG IV SCH (10:24)
[2017-06-22] MEDS: MUCINEX ER PO SCH ×2 (10:25→21:42)
[2017-06-22] MEDS: PROTONIX PO SCH (10:25)
[2017-06-22] MEDS: LOVENOX SUB-Q SCH (10:25)
[2017-06-22] MEDS: SENOKOT PO SCH ×3 (10:25→22:12)
[2017-06-22] MEDS: COLACE PO SCH ×2 (10:25→21:43)
--- NOTE | 2017-06-22 11:44 | Progress Note ---
Assessment and Plan Assessment and plan: Acute hypoxic respiratory failure. Continue supplemental oxygen and BiPAP as clinically indicated. Etiology secondary to COPD and pneumonia. RLL Community-acquired pneumonia. Continue IV antibiotics. Follow-up serial Chest x-ray. Acute COPD exacerbation. Continue systemic steroids with IV Solu-Medrol and bronchodilators. Pulmonary following. Leukocytosis. Etiology secondary to above. Hypertension. Continue antihypertensive medications. Diabetes mellitus type 2. Continue Accu-Cheks and sliding scale insulin. History of lung cancer. History Interval history: No new issues overnight. Hospitalist Physical - Constitutional Vitals: Temp Pulse Resp BP Pulse Ox 97.3 F L 88 18 144/63 93 06/22/17 07:35 06/22/17 07:42 06/22/17 07:35 06/22/17 07:35 06/22/17 04:16 General appearance: Present: no acute distress, well-nourished - EENT Eyes: Present: PERRL, EOM intact ENT: hearing intact, clear oral mucosa, dentition normal - Neck Neck: Present: supple, normal ROM - Respiratory Respiratory effort: normal Respiratory: bilateral: diminished, rhonchi, wheezing - Cardiovascular Rhythm: regular Heart Sounds: Present: S1 & S2. Absent: gallop, rub - Extremities Extremities: no ischemia, No edema, Full ROM - Abdominal General gastrointestinal: soft, non-tender, non-distended, normal bowel sounds - Integumentary Integumentary: Present: clear, warm, dry - Neurologic Neurologic: CNII-XII intact, moves all extremities Results - Labs CBC & Chem 7: 06/22/17 04:33 06/22/17 04:33 Labs: Laboratory Last Values WBC 9.8 K/mm3 (4.5-11.0) 06/22/17 04:33 RBC 3.72 M/mm3 (3.65-5.03) 06/22/17 04:33 Hgb 11.5 gm/dl (11.8-15.2) L 06/22/17 04:33 Hct 33.7 % (35.5-45.6) L 06/22/17 04:33 MCV 91 fl (84-94) 06/22/17 04:33 MCH 31 pg (28-32) 06/22/17 04:33 MCHC 34 % (32-34) 06/22/17 04:33 RDW 13.1 % (13.2-15.2) L 06/22/17 04:33 Plt Count 197 K/mm3 (140-440) 06/22/17 04:33 Lymph % (Auto) 23.4 % (13.4-35.0) 06/20/17 18:05 [place] % (Auto) 9.6 % (0.0-7.3) H 06/20/17 18:05 Eos % (Auto) 1.7 % (0.0-4.3) 06/20/17 18:05 Baso % (Auto) 0.2 % (0.0-1.8) 06/20/17 18:05 Lymph # 3.1 K/mm3 (1.2-5.4) 06/20/17 18:05 [place] # 1.3 K/mm3 (0.0-0.8) H 06/20/17 18:05 Eos # 0.2 K/mm3 (0.0-0.4) 06/20/17 18:05 Baso # 0.0 K/mm3 (0.0-0.1) 06/20/17 18:05 Add Manual Diff Complete 06/22/17 04:33 Total Counted 100 06/22/17 04:33 Seg Neutrophils % [employer] 06/22/17 04:33 Seg Neuts % (Manual) 87.0 % (40.0-70.0) H 06/22/17 04:33 Band Neutrophils % 2.0 % 06/22/17 04:33 Lymphocytes % (Manual) 7.0 % (13.4-35.0) L 06/22/17 04:33 Reactive Lymphs % (Man) 0 % 06/22/17 04:33 Monocytes % (Manual) 4.0 % (0.0-7.3) 06/22/17 04:33 Eosinophils % (Manual) 0 % (0.0-4.3) 06/22/17 04:33 Basophils % (Manual) 0 % (0.0-1.8) 06/22/17 04:33 Metamyelocytes % 0 % 06/22/17 04:33 Myelocytes % 0 % 06/22/17 04:33 Promyelocytes % 0 % 06/22/17 04:33 Blast Cells % 0 % 06/22/17 04:33 Nucleated RBC % Not Reportable 06/22/17 04:33 Seg Neutrophils # 8.6 K/mm3 (1.8-7.7) H 06/20/17 18:05 Seg Neutrophils # Man 8.5 K/mm3 (1.8-7.7) H 06/22/17 04:33 Band Neutrophils # 0.2 K/mm3 06/22/17 04:33 Lymphocytes # (Manual) 0.7 K/mm3 (1.2-5.4) L 06/22/17 04:33 Abs React Lymphs (Man) 0.0 K/mm3 06/22/17 04:33 Monocytes # (Manual) 0.4 K/mm3 (0.0-0.8) 06/22/17 04:33 Eosinophils # (Manual) 0.0 K/mm3 (0.0-0.4) 06/22/17 04:33 Basophils # (Manual) 0.0 K/mm3 (0.0-0.1) 06/22/17 04:33 Metamyelocytes # 0.0 K/mm3 06/22/17 04:33 Myelocytes # 0.0 K/mm3 06/22/17 04:33 Promyelocytes # 0.0 K/mm3 06/22/17 04:33 Blast Cells # 0.0 K/mm3 06/22/17 04:33 WBC Morphology Not Reportable 06/22/17 04:33 Hypersegmented Neuts Not Reportable 06/22/17 04:33 Hyposegmented Neuts Not Reportable 06/22/17 04:33 Hypogranular Neuts Not Reportable 06/22/17 04:33 Smudge Cells Not Reportable 06/22/17 04:33 Toxic Granulation Not Reportable 06/22/17 04:33 Toxic Vacuolation Not Reportable 06/22/17 04:33 Dohle Bodies Not Reportable 06/22/17 04:33 Pelger-Huet Anomaly Not Reportable 06/22/17 04:33 Evens Rods Not Reportable 06/22/17 04:33 Platelet Estimate Consistent w auto 06/22/17 04:33 Clumped Platelets Not Reportable 06/22/17 04:33 Plt Clumps, EDTA Not Reportable 06/22/17 04:33 Large Platelets Not Reportable 06/22/17 04:33 Giant Platelets Not Reportable 06/22/17 04:33 Platelet Satelliting Not Reportable 06/22/17 04:33 Plt Morphology Comment Not Reportable 06/22/17 04:33 RBC Morphology Normal 06/22/17 04:33 Dimorphic RBCs Not Reportable 06/22/17 04:33 Polychromasia Not Reportable 06/22/17 04:33 Hypochromasia Not Reportable 06/22/17 04:33 Poikilocytosis Not Reportable 06/22/17 04:33 Anisocytosis Not Reportable 06/22/17 04:33 Microcytosis Not Reportable 06/22/17 04:33 Macrocytosis Not Reportable 06/22/17 04:33 Spherocytes Not Reportable 06/22/17 04:33 Pappenheimer Bodies Not Reportable 06/22/17 04:33 Sickle Cells Not Reportable 06/22/17 04:33 Target Cells Not Reportable 06/22/17 04:33 Tear Drop Cells Not Reportable 06/22/17 04:33 Ovalocytes Not Reportable 06/22/17 04:33 Helmet Cells Not Reportable 06/22/17 04:33 [place] Bodies Not Reportable 06/22/17 04:33 [place] Rings Not Reportable 06/22/17 04:33 Sindy Cells Not Reportable 06/22/17 04:33 Bite Cells Not Reportable 06/22/17 04:33 Crenated Cell Not Reportable 06/22/17 04:33 Elliptocytes Not Reportable 06/22/17 04:33 Acanthocytes (Spur) Not Reportable 06/22/17 04:33 Rouleaux Not Reportable 06/22/17 04:33 Hemoglobin C Crystals Not Reportable 06/22/17 04:33 Schistocytes Not Reportable 06/22/17 04:33 Malaria parasites Not Reportable 06/22/17 04:33 Shaan Bodies Not Reportable 06/22/17 04:33 Hem Pathologist Commnt No 06/22/17 04:33 Sodium 138 mmol/L (137-145) 06/22/17 04:33 Potassium 4.8 mmol/L (3.6-5.0) 06/22/17 04:33 Chloride 103.0 mmol/L (98-107) 06/22/17 04:33 Carbon Dioxide 19 mmol/L (22-30) L 06/22/17 04:33 Anion Gap 21 mmol/L 06/22/17 04:33 BUN 23 mg/dL (9-20) H 06/22/17 04:33 Creatinine 0.8 mg/dL (0.8-1.5) 06/22/17 04:33 Estimated GFR > 60 ml/min 06/22/17 04:33 BUN/Creatinine Ratio 29 % 06/22/17 04:33 Glucose 313 mg/dL (75-100) H 06/22/17 04:33 POC Glucose 278 (70-105) H 06/22/17 07:43 Hemoglobin A1c 6.7 % (4-6) H 06/21/17 06:59 Calcium 8.2 mg/dL (8.4-10.2) L 06/22/17 04:33 Total Bilirubin 0.20 mg/dL (0.1-1.2) 06/22/17 04:33 AST 17 units/L (5-40) 06/22/17 04:33 ALT 20 units/L (7-56) 06/22/17 04:33 Alkaline Phosphatase 52 units/L (35-129) 06/22/17 04:33 Total Creatine Kinase 73 units/L (55-170) 06/20/17 23:38 CK-MB (CK-2) 3.0 ng/mL (0.0-4.0) 06/20/17 23:38 CK-MB (CK-2) Rel Index 4.1 (0-4) H 06/20/17 23:38 Troponin T < 0.010 ng/mL (0.00-0.029) 06/20/17 23:38 NT-Pro-B Natriuret Pep 465.7 pg/mL (0-900) 06/20/17 23:38 Total Protein 5.9 g/dL (6.3-8.2) L 06/22/17 04:33 Albumin 3.0 g/dL (3.9-5) L 06/22/17 04:33 Albumin/Globulin Ratio 1.0 % 06/22/17 04:33 Triglycerides 58 mg/dL (2-149) 06/21/17 06:59 Cholesterol 144 mg/dL (50-199) 06/21/17 06:59 LDL Cholesterol Direct 82 mg/dL (50-130) 06/21/17 06:59 HDL Cholesterol 51 mg/dL (40-59) 06/21/17 06:59 Cholesterol/HDL Ratio 2.82 % 06/21/17 06:59
--- NOTE | 2017-06-22 16:21 | Progress Note ---
Assessment and Plan Pneumonia. Currently completing antibiotics. No fever COPD with exacerbation. Improved. This better controlled. 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 Ambulate patient and monitor oximetry. Add portable oxygen 2 L/m if oximetry below 89% on room air. Update influenza and pneumonia vaccination, if not completed already. Outpatient pulmonary f/u.Sees Inhaler therapy including LAMA, LABA/ICS therapy, per GOLD guidelines. Subjective Date of service: 06/22/17 Principal diagnosis: pneumonia Interval history: Reports to be feeling better today. Some mild wheezing when asked about it. No active expectoration. Denies fever. Objective Vital Signs - 12hr 06/22/17 06/22/17 06/22/17 07:34 07:35 07:42 Temperature 97.3 F L Pulse Rate 88 Pulse Rate [ 78 Anterior Bilateral Throughout] Respiratory 18 Rate Respiratory 18 Rate [Anterior Bilateral Throughout] Respiratory Rate [ Generalized] Blood Pressure 144/63 Blood Pressure [Right] O2 Sat by Pulse 96 Oximetry 06/22/17 06/22/17 06/22/17 07:45 10:00 12:41 Temperature 97.7 F Pulse Rate 90 Pulse Rate [ 77 Anterior Bilateral Throughout] Respiratory 20 18 Rate Respiratory 20 Rate [Anterior Bilateral Throughout] Respiratory 20 Rate [ Generalized] Blood Pressure Blood Pressure 128/53 [Right] O2 Sat by Pulse 97 92 Oximetry 06/22/17 06/22/17 13:38 13:48 Temperature Pulse Rate Pulse Rate [ 85 94 H Anterior Bilateral Throughout] Respiratory Rate Respiratory 20 20 Rate [Anterior Bilateral Throughout] Respiratory Rate [ Generalized] Blood Pressure Blood Pressure [Right] O2 Sat by Pulse Oximetry Constitutional: no acute distress, alert Eyes: non-icteric ENT: oropharynx moist Neck: supple, no JVD Effort: normal Ascultation: Bilateral: clear, diminished breath sounds, wheezes (very sporadic) Cardiovascular: regular rate and rhythm Gastrointestinal: normoactive bowel sounds, soft, non-tender, non-distended Integumentary: normal Extremities: no cyanosis, no edema, pink and warm Neurologic: normal mental status, non-focal exam, pupils equal and round, CN II- XII normal Psychiatric: mood appropriate, affect normal CBC and BMP: 06/22/17 04:33 06/22/17 04:33 Abnormal lab findings: Abnormal Labs 06/20/17 06/20/17 06/20/17 18:05 18:05 23:38 WBC 13.1 H Hgb Hct RDW [place] % (Auto) 9.6 H [place] # 1.3 H Seg Neuts % (Manual) Lymphocytes % (Manual) Seg Neutrophils # 8.6 H Seg Neutrophils # Man Lymphocytes # (Manual) Carbon Dioxide BUN 22 H Glucose 61 L POC Glucose Hemoglobin A1c Calcium CK-MB (CK-2) Rel Index 4.1 H Total Protein Albumin 06/21/17 06/21/17 06/21/17 06:59 06:59 08:21 WBC Hgb Hct RDW 12.9 L [place] % (Auto) [place] # Seg Neuts % (Manual) 95.0 H Lymphocytes % (Manual) 4.0 L Seg Neutrophils # Seg Neutrophils # Man 9.1 H Lymphocytes # (Manual) 0.4 L Carbon Dioxide 20 L BUN 23 H Glucose 282 H POC Glucose Hemoglobin A1c 6.7 H Calcium 8.3 L CK-MB (CK-2) Rel Index Total Protein Albumin 3.4 L 06/21/17 06/21/17 06/22/17 13:02 22:29 04:33 WBC Hgb 11.5 L Hct 33.7 L RDW 13.1 L [place] % (Auto) [place] # Seg Neuts % (Manual) 87.0 H Lymphocytes % (Manual) 7.0 L Seg Neutrophils # Seg Neutrophils # Man 8.5 H Lymphocytes # (Manual) 0.7 L Carbon Dioxide BUN Glucose POC Glucose 296 H 247 H Hemoglobin A1c Calcium CK-MB (CK-2) Rel Index Total Protein Albumin 06/22/17 06/22/17 06/22/17 04:33 07:43 11:54 WBC Hgb Hct RDW [place] % (Auto) [place] # Seg Neuts % (Manual) Lymphocytes % (Manual) Seg Neutrophils # Seg Neutrophils # Man Lymphocytes # (Manual) Carbon Dioxide 19 L BUN 23 H Glucose 313 H POC Glucose 278 H 335 H Hemoglobin A1c Calcium 8.2 L CK-MB (CK-2) Rel Index Total Protein 5.9 L Albumin 3.0 L
[2017-06-23] MEDS: NACL 0.9% 1000 ML 1,000 ML IV SCH (00:34)
[2017-06-23] MEDS: DUONEB *Not for PRN Use IH SCH ×4 (01:14→20:40)
--- NOTE | 2017-06-23 10:07 | Progress Note ---
Assessment and Plan Assessment and plan: Acute hypoxic respiratory failure. Continue supplemental oxygen and BiPAP as clinically indicated. Etiology secondary to COPD and pneumonia. RLL Community-acquired pneumonia. Continue IV antibiotics. Follow-up serial Chest x-ray. Acute COPD exacerbation. Continue systemic steroids with IV Solu-Medrol and bronchodilators. Pulmonary following. Leukocytosis. Etiology secondary to above. Hypertension. Continue antihypertensive medications. Diabetes mellitus type 2. Continue Accu-Cheks and sliding scale insulin. History of lung cancer. Disposition. Anticipate discharge in a.m. History Interval history: No new issues overnight. Hospitalist Physical - Constitutional Vitals: Temp Pulse Resp BP Pulse Ox 97.5 F L 70 20 136/54 92 06/23/17 05:04 06/23/17 05:04 06/23/17 05:04 06/23/17 05:04 06/23/17 05:04 General appearance: Present: no acute distress, well-nourished - EENT Eyes: Present: PERRL, EOM intact ENT: hearing intact, clear oral mucosa, dentition normal - Neck Neck: Present: supple, normal ROM - Respiratory Respiratory effort: normal Respiratory: bilateral: CTA - Cardiovascular Rhythm: regular Heart Sounds: Present: S1 & S2. Absent: gallop, rub - Extremities Extremities: no ischemia, No edema, Full ROM - Abdominal General gastrointestinal: soft, non-tender, non-distended, normal bowel sounds - Integumentary Integumentary: Present: clear, warm, dry - Neurologic Neurologic: CNII-XII intact, moves all extremities Results - Labs CBC & Chem 7: 06/22/17 04:33 06/22/17 04:33 Labs: Laboratory Last Values WBC 9.8 K/mm3 (4.5-11.0) 06/22/17 04:33 RBC 3.72 M/mm3 (3.65-5.03) 06/22/17 04:33 Hgb 11.5 gm/dl (11.8-15.2) L 06/22/17 04:33 Hct 33.7 % (35.5-45.6) L 06/22/17 04:33 MCV 91 fl (84-94) 06/22/17 04:33 MCH 31 pg (28-32) 06/22/17 04:33 MCHC 34 % (32-34) 06/22/17 04:33 RDW 13.1 % (13.2-15.2) L 06/22/17 04:33 Plt Count 197 K/mm3 (140-440) 06/22/17 04:33 Lymph % (Auto) 23.4 % (13.4-35.0) 06/20/17 18:05 [place] % (Auto) 9.6 % (0.0-7.3) H 06/20/17 18:05 Eos % (Auto) 1.7 % (0.0-4.3) 06/20/17 18:05 Baso % (Auto) 0.2 % (0.0-1.8) 06/20/17 18:05 Lymph # 3.1 K/mm3 (1.2-5.4) 06/20/17 18:05 [place] # 1.3 K/mm3 (0.0-0.8) H 06/20/17 18:05 Eos # 0.2 K/mm3 (0.0-0.4) 06/20/17 18:05 Baso # 0.0 K/mm3 (0.0-0.1) 06/20/17 18:05 Add Manual Diff Complete 06/22/17 04:33 Total Counted 100 06/22/17 04:33 Seg Neutrophils % [employer] Att[employer] 06/22/17 04:33 Seg Neuts % (Manual) 87.0 % (40.0-70.0) H 06/22/17 04:33 Band Neutrophils % 2.0 % 06/22/17 04:33 Lymphocytes % (Manual) 7.0 % (13.4-35.0) L 06/22/17 04:33 Reactive Lymphs % (Man) 0 % 06/22/17 04:33 Monocytes % (Manual) 4.0 % (0.0-7.3) 06/22/17 04:33 Eosinophils % (Manual) 0 % (0.0-4.3) 06/22/17 04:33 Basophils % (Manual) 0 % (0.0-1.8) 06/22/17 04:33 Metamyelocytes % 0 % 06/22/17 04:33 Myelocytes % 0 % 06/22/17 04:33 Promyelocytes % 0 % 06/22/17 04:33 Blast Cells % 0 % 06/22/17 04:33 Nucleated RBC % Not Reportable 06/22/17 04:33 Seg Neutrophils # 8.6 K/mm3 (1.8-7.7) H 06/20/17 18:05 Seg Neutrophils # Man 8.5 K/mm3 (1.8-7.7) H 06/22/17 04:33 Band Neutrophils # 0.2 K/mm3 06/22/17 04:33 Lymphocytes # (Manual) 0.7 K/mm3 (1.2-5.4) L 06/22/17 04:33 Abs React Lymphs (Man) 0.0 K/mm3 06/22/17 04:33 Monocytes # (Manual) 0.4 K/mm3 (0.0-0.8) 06/22/17 04:33 Eosinophils # (Manual) 0.0 K/mm3 (0.0-0.4) 06/22/17 04:33 Basophils # (Manual) 0.0 K/mm3 (0.0-0.1) 06/22/17 04:33 Metamyelocytes # 0.0 K/mm3 06/22/17 04:33 Myelocytes # 0.0 K/mm3 06/22/17 04:33 Promyelocytes # 0.0 K/mm3 06/22/17 04:33 Blast Cells # 0.0 K/mm3 06/22/17 04:33 WBC Morphology Not Reportable 06/22/17 04:33 Hypersegmented Neuts Not Reportable 06/22/17 04:33 Hyposegmented Neuts Not Reportable 06/22/17 04:33 Hypogranular Neuts Not Reportable 06/22/17 04:33 Smudge Cells Not Reportable 06/22/17 04:33 Toxic Granulation Not Reportable 06/22/17 04:33 Toxic Vacuolation Not Reportable 06/22/17 04:33 Dohle Bodies Not Reportable 06/22/17 04:33 Pelger-Huet Anomaly Not Reportable 06/22/17 04:33 Evens Rods Not Reportable 06/22/17 04:33 Platelet Estimate Consistent w auto 06/22/17 04:33 Clumped Platelets Not Reportable 06/22/17 04:33 Plt Clumps, EDTA Not Reportable 06/22/17 04:33 Large Platelets Not Reportable 06/22/17 04:33 Giant Platelets Not Reportable 06/22/17 04:33 Platelet Satelliting Not Reportable 06/22/17 04:33 Plt Morphology Comment Not Reportable 06/22/17 04:33 RBC Morphology Normal 06/22/17 04:33 Dimorphic RBCs Not Reportable 06/22/17 04:33 Polychromasia Not Reportable 06/22/17 04:33 Hypochromasia Not Reportable 06/22/17 04:33 Poikilocytosis Not Reportable 06/22/17 04:33 Anisocytosis Not Reportable 06/22/17 04:33 Microcytosis Not Reportable 06/22/17 04:33 Macrocytosis Not Reportable 06/22/17 04:33 Spherocytes Not Reportable 06/22/17 04:33 Pappenheimer Bodies Not Reportable 06/22/17 04:33 Sickle Cells Not Reportable 06/22/17 04:33 Target Cells Not Reportable 06/22/17 04:33 Tear Drop Cells Not Reportable 06/22/17 04:33 Ovalocytes Not Reportable 06/22/17 04:33 Helmet Cells Not Reportable 06/22/17 04:33 [place] Bodies Not Reportable 06/22/17 04:33 [place] Rings Not Reportable 06/22/17 04:33 Sindy Cells Not Reportable 06/22/17 04:33 Bite Cells Not Reportable 06/22/17 04:33 Crenated Cell Not Reportable 06/22/17 04:33 Elliptocytes Not Reportable 06/22/17 04:33 Acanthocytes (Spur) Not Reportable 06/22/17 04:33 Rouleaux Not Reportable 06/22/17 04:33 Hemoglobin C Crystals Not Reportable 06/22/17 04:33 Schistocytes Not Reportable 06/22/17 04:33 Malaria parasites Not Reportable 06/22/17 04:33 Shaan Bodies Not Reportable 06/22/17 04:33 Hem Pathologist Commnt No 06/22/17 04:33 Sodium 138 mmol/L (137-145) 06/22/17 04:33 Potassium 4.8 mmol/L (3.6-5.0) 06/22/17 04:33 Chloride 103.0 mmol/L (98-107) 06/22/17 04:33 Carbon Dioxide 19 mmol/L (22-30) L 06/22/17 04:33 Anion Gap 21 mmol/L 06/22/17 04:33 BUN 23 mg/dL (9-20) H 06/22/17 04:33 Creatinine 0.8 mg/dL (0.8-1.5) 06/22/17 04:33 Estimated GFR > 60 ml/min 06/22/17 04:33 BUN/Creatinine Ratio 29 % 06/22/17 04:33 Glucose 313 mg/dL (75-100) H 06/22/17 04:33 POC Glucose 117 (70-105) H 06/22/17 21:22 Hemoglobin A1c 6.7 % (4-6) H 06/21/17 06:59 Calcium 8.2 mg/dL (8.4-10.2) L 06/22/17 04:33 Total Bilirubin 0.20 mg/dL (0.1-1.2) 06/22/17 04:33 AST 17 units/L (5-40) 06/22/17 04:33 ALT 20 units/L (7-56) 06/22/17 04:33 Alkaline Phosphatase 52 units/L (35-129) 06/22/17 04:33 Total Creatine Kinase 73 units/L (55-170) 06/20/17 23:38 CK-MB (CK-2) 3.0 ng/mL (0.0-4.0) 06/20/17 23:38 CK-MB (CK-2) Rel Index 4.1 (0-4) H 06/20/17 23:38 Troponin T < 0.010 ng/mL (0.00-0.029) 06/20/17 23:38 NT-Pro-B Natriuret Pep 465.7 pg/mL (0-900) 06/20/17 23:38 Total Protein 5.9 g/dL (6.3-8.2) L 06/22/17 04:33 Albumin 3.0 g/dL (3.9-5) L 06/22/17 04:33 Albumin/Globulin Ratio 1.0 % 06/22/17 04:33 Triglycerides 58 mg/dL (2-149) 06/21/17 06:59 Cholesterol 144 mg/dL (50-199) 06/21/17 06:59 LDL Cholesterol Direct 82 mg/dL (50-130) 06/21/17 06:59 HDL Cholesterol 51 mg/dL (40-59) 06/21/17 06:59 Cholesterol/HDL Ratio 2.82 % 06/21/17 06:59
[2017-06-23] MEDS: NOVOLOG SUB-Q SCH ×4 (10:14→22:42)
[2017-06-23] MEDS: MUCINEX ER PO SCH ×2 (10:14→22:16)
[2017-06-23] MEDS: LOVENOX SUB-Q SCH (10:14)
[2017-06-23] MEDS: GLUCOPHAGE PO SCH (10:36)
[2017-06-23] MEDS: AMARYL PO SCH (10:37)
[2017-06-23] MEDS: PROTONIX PO SCH (10:37)
[2017-06-23] MEDS: COLACE PO SCH ×2 (10:38→22:16)
[2017-06-23] MEDS: SENOKOT PO SCH ×2 (10:38→22:17)
[2017-06-23] MEDS: TRADJENTA PO SCH (10:38)
[2017-06-23] MEDS: LEVAQUIN 750MG/150ML 750 MG/150 ML BAG IV SCH (10:39)
[2017-06-23] MEDS: PULMICORT IH SCH ×2 (10:54→20:40)
--- NOTE | 2017-06-23 15:08 | Progress Note ---
Assessment and Plan Pneumonia. Currently completing antibiotics. No fever COPD with exacerbation. Improved. This better controlled. 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 Ambulate patient and monitor oximetry. Outpatient pulmonary f/u.Sees Consider switching to by mouth steroids. Can initiate Spiriva or Anoro inhaler for outpatient treatment Chest PT today Subjective Date of service: 06/23/17 Principal diagnosis: pneumonia Interval history: Some cough and chest congestion. Reports minimal wheezing. Was to go home tomorrow. No fever. Objective Vital Signs - 12hr 06/23/17 06/23/17 06/23/17 05:04 08:10 10:50 Temperature 97.5 F L 98.5 F Pulse Rate 70 Pulse Rate [ 60 Anterior Bilateral Throughout] Respiratory 20 18 Rate Respiratory 20 Rate [Anterior Bilateral Throughout] Blood Pressure 136/54 145/63 O2 Sat by Pulse 92 Oximetry 06/23/17 06/23/17 11:11 11:55 Temperature 97.7 F Pulse Rate Pulse Rate [ 64 Anterior Bilateral Throughout] Respiratory 18 Rate Respiratory 16 Rate [Anterior Bilateral Throughout] Blood Pressure 149/55 O2 Sat by Pulse Oximetry Constitutional: no acute distress, alert Eyes: non-icteric ENT: oropharynx moist Neck: supple, no JVD Effort: normal Ascultation: Bilateral: clear, diminished breath sounds, wheezes (very sporadic) , rales (bibasilar) Cardiovascular: regular rate and rhythm Gastrointestinal: normoactive bowel sounds, soft, non-tender, non-distended Integumentary: normal Extremities: no cyanosis, no edema, pink and warm Neurologic: normal mental status, non-focal exam, pupils equal and round, CN II- XII normal Psychiatric: mood appropriate, affect normal CBC and BMP: 06/22/17 04:33 06/22/17 04:33 Abnormal lab findings: Abnormal Labs 06/20/17 06/20/17 06/20/17 18:05 18:05 23:38 WBC 13.1 H Hgb Hct RDW [place] % (Auto) 9.6 H [place] # 1.3 H Seg Neuts % (Manual) Lymphocytes % (Manual) Seg Neutrophils # 8.6 H Seg Neutrophils # Man Lymphocytes # (Manual) Carbon Dioxide BUN 22 H Glucose 61 L POC Glucose Hemoglobin A1c Calcium CK-MB (CK-2) Rel Index 4.1 H Total Protein Albumin 06/21/17 06/21/17 06/21/17 06:59 06:59 08:21 WBC Hgb Hct RDW 12.9 L [place] % (Auto) [place] # Seg Neuts % (Manual) 95.0 H Lymphocytes % (Manual) 4.0 L Seg Neutrophils # Seg Neutrophils # Man 9.1 H Lymphocytes # (Manual) 0.4 L Carbon Dioxide 20 L BUN 23 H Glucose 282 H POC Glucose Hemoglobin A1c 6.7 H Calcium 8.3 L CK-MB (CK-2) Rel Index Total Protein Albumin 3.4 L 06/21/17 06/21/17 06/22/17 13:02 22:29 04:33 WBC Hgb 11.5 L Hct 33.7 L RDW 13.1 L [place] % (Auto) [place] # Seg Neuts % (Manual) 87.0 H Lymphocytes % (Manual) 7.0 L Seg Neutrophils # Seg Neutrophils # Man 8.5 H Lymphocytes # (Manual) 0.7 L Carbon Dioxide BUN Glucose POC Glucose 296 H 247 H Hemoglobin A1c Calcium CK-MB (CK-2) Rel Index Total Protein Albumin 06/22/17 06/22/17 06/22/17 04:33 07:43 11:54 WBC Hgb Hct RDW [place] % (Auto) [place] # Seg Neuts % (Manual) Lymphocytes % (Manual) Seg Neutrophils # Seg Neutrophils # Man Lymphocytes # (Manual) Carbon Dioxide 19 L BUN 23 H Glucose 313 H POC Glucose 278 H 335 H Hemoglobin A1c Calcium 8.2 L CK-MB (CK-2) Rel Index Total Protein 5.9 L Albumin 3.0 L 06/22/17 06/22/17 06/23/17 16:12 21:22 08:18 WBC Hgb Hct RDW [place] % (Auto) [place] # Seg Neuts % (Manual) Lymphocytes % (Manual) Seg Neutrophils # Seg Neutrophils # Man Lymphocytes # (Manual) Carbon Dioxide BUN Glucose POC Glucose 262 H 117 H 291 H Hemoglobin A1c Calcium CK-MB (CK-2) Rel Index Total Protein Albumin 06/23/17 12:02 WBC Hgb Hct RDW [place] % (Auto) [place] # Seg Neuts % (Manual) Lymphocytes % (Manual) Seg Neutrophils # Seg Neutrophils # Man Lymphocytes # (Manual) Carbon Dioxide BUN Glucose POC Glucose 268 H Hemoglobin A1c Calcium CK-MB (CK-2) Rel Index Total Protein Albumin
[2017-06-23 19:58] VITALS: BP 142/51
[2017-06-24] MEDS: DUONEB *Not for PRN Use IH SCH ×3 (02:20→13:35)
[2017-06-24] MEDS: NOVOLOG SUB-Q SCH ×2 (08:00→11:10)
[2017-06-24] MEDS: PULMICORT IH SCH (08:00)
--- NOTE | 2017-06-24 10:57 | Discharge Summary ---
Providers - Providers Date of Admission: 06/21/17 05:30 Date of discharge: 06/24/17 Attending physician: BOBBY NAVARRO 06/21/17 08:51 Consult to Physician [CONS] Routine Consulting Provider: ZHENG SWEENEY Reason For Exam: copd [place] [facility] consult to:: ale Notified:: office Phone number called:: [phone] Was contact made?: Yes If yes, spoke with:: sandie Time called:: 09:00 Primary care physician: BOBBY BOGGS Hospitalization Condition: Fair Disposition: DC-01 TO HOME OR SELFCARE Core Measure Documentation - Palliative Care Palliative Care/ Comfort Measures: Not Applicable - Core Measures Any of the following diagnoses?: none Exam - Constitutional Vitals: Temp Pulse Resp BP Pulse Ox 98.3 F 85 20 142/51 94 06/23/17 19:18 06/24/17 07:43 06/24/17 02:50 06/23/17 19:18 06/23/17 22:09 Plan Activity: advance as tolerated Diet: low fat, low cholesterol, low salt, diabetic Additional Instructions: 1.Follow up with PCP in 1 week. 2.Follow up with Dr. Guevara in 1 week Follow up with: BOBBY BOGGS MD [Primary Care Provider] - 3-5 Days Prescriptions: Azithromycin [Zithromax TAB] 500 mg PO QDAY #5 tablet guaiFENesin ER [Mucinex ER] 600 mg PO BID #14 tablet
[2017-06-24] MEDS: AMARYL PO SCH (10:58)
[2017-06-24] MEDS: LOVENOX SUB-Q SCH (10:58)
[2017-06-24] MEDS: LEVAQUIN 750MG/150ML 750 MG/150 ML BAG IV SCH (10:58)
[2017-06-24] MEDS: COLACE PO SCH (10:58)
[2017-06-24] MEDS: GLUCOPHAGE PO SCH (10:58)
[2017-06-24] MEDS: TRADJENTA PO SCH (10:59)
[2017-06-24] MEDS: PROTONIX PO SCH (10:59)
[2017-06-24] MEDS: SENOKOT PO SCH (10:59)
[2017-06-24] MEDS: MUCINEX ER PO SCH (10:59)
== END 2017-06-24 14:43 | disposition home or self-care (01) | DRG 196 ==
LOC: ED 17:27 → 4A 06-21 05:30
PROVIDERS: ADMIT Internal Medicine Geriatric Medicine; ATTEND Internal Medicine
DX: J84.9 Interstitial pulmonary disease, unspecified (principal); J96.01 Acute respiratory failure with hypoxia; J44.1 Chronic obstructive pulmonary disease with (acute) exacerbation; J44.0 Chronic obstructive pulmonary disease with (acute) lower respiratory infection; I10 Essential (primary) hypertension; M19.90 Unspecified osteoarthritis, unspecified site; E86.0 Dehydration; E11.649 Type 2 diabetes mellitus with hypoglycemia without coma; F17.200 Nicotine dependence, unspecified, uncomplicated; D72.829 Elevated white blood cell count, unspecified; J92.0 Pleural plaque with presence of asbestos; Z85.89 Personal history of malignant neoplasm of other organs and systems; Z85.118 Personal history of other malignant neoplasm of bronchus and lung
CPT/HCPCS: 36415; 71020; 71275; 80048; 80053; 80061; 82550; 82553; 82962; 83036; 83880; 84484; 85007; 85025; 87040; 87400; 93005; 93010; 94640; 94644; 94760; 96374; 96375; J0456; J0696; J1650; J1815; J1885; J1956; J2930; J7030; J7050; Q9967

== ENCOUNTER 2020-08-17 07:35 | Outpatient (CLI) | payer MEDICARE, OTHER ==
[2020-08-17 08:33] LABS: Blood Urea Nitrogen 23 mg/dL (9-20)
--- NOTE | 2020-08-17 09:35 | Cat Scan Report ---
CT chest w con INDICATION: MAIN. TECHNIQUE: All CT scans at this location are performed using CT dose reduction for ALARA by means of automated e xposure control. COMPARISON: CT angiogram dated 06/21/2017. FINDINGS: There is a large mass in the left upper lung, extending to the left superior mediastinum and superior hilar. Mass measures 7 cm greatest diameter. There are multiple small mediastinal nodes but no signi ficant mediastinal adenopathy. However, there does appear to be a 1 cm mass in the left upper lobe br onchus. Images through the upper abdomen show no obvious adenopathy, liver or adrenal lesions. Calcif ied pleural plaques are demonstrated bilaterally, not associated with abnormal mass. There are 2 separate, much smaller masses in the left upper lobe, measuring 1.3 cm and 0.9 cm. No skeletal metastases. IMPRESSION: 1. 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 2. Endobronchial lesion in the left upper lobe bronchus, probably malignant. 3. Separate soft tissue masses in the left upper lobe, probably metastases. Signer Name: Garcia Horton MD Signed: 08/17/2020 9:30 AM Workstation Name: [id number]
== END 2020-08-17 07:36 | disposition home or self-care (01) ==
LOC: CT 07:35
PROVIDERS: ATTEND Specialist
DX: J90 Pleural effusion, not elsewhere classified (principal); R91.8 Other nonspecific abnormal finding of lung field
CPT/HCPCS: 36415; 71260; 82565; 84520; Q9967